=== PATIENT | female | born 1990 | race African-American/Black ===

== ENCOUNTER 2019-10-03 21:16 | Emergency (ER) | payer MEDICAID ==
[~2019-10-03] VITALS: Ht 157.5 cm; Wt 73.5 kg
[2019-10-03 21:24] VITALS: BP 147/78
[2019-10-03] MEDS ORDERED: PENICILLIN G BENZ 1200000 UNITS/2 ML SYRG IM ONE ×2 (21:30→21:45)
== END 2019-10-03 22:32 | disposition home or self-care (01) ==
LOC: ER 21:20
DX: A53.9 Syphilis, unspecified (principal); Z20.2 Contact with and (suspected) exposure to infections with a predominantly sexual mode of transmission
CPT/HCPCS: 86592; 96372; 99283; J0561